=== PATIENT | male | born 1935 | race Caucasian/White ===

== ENCOUNTER → 2017-04-16 | Outpatient (CLI) | payer MEDICARE, BC ==
[~2017-04-16] MED LIST: AMLODIPINE5 M1 PO; ATIVAN0.5 MG PO; BACLOFEN 10MG T10 MG PO; Depakote250 MG PO; FLEXERIL5 MG PO; FLONASE 50 MCG16 GM; SUPHEDRINE SINU PO; TYLENOL EXTRA500 M1 PO; VIAGRA50 MG PO; ZOCOR10 MG PO
== END ==
LOC: LAB 12:35
DX: N40.1 Benign prostatic hyperplasia with lower urinary tract symptoms (principal); Z12.5 Encounter for screening for malignant neoplasm of prostate
CPT/HCPCS: G0103

== ENCOUNTER → 2017-05-02 | Outpatient (CLI) | payer MEDICARE, BC ==
--- NOTE | 2017-05-02 11:33 | RADIOLOGY REPORT PS360 ---
KNEE-3 VIEWS-RT HISTORY: ARTHRALGIA OF RT KNEE ORDERING PHYSICIAN: GODWIN DONAHUE PATIENT AGE: 81 years COMPARISON: None FINDINGS: No fracture or dislocation. No lytic or blastic change. Normal mineralization. No significant arthritic changes evident. Minimal bony hypertrophy along the posterior patella superiorly and inferiorly. The knee joint space is well-preserved Incidental vascular calcification. IMPRESSION: Minimal bony spurring along the patella otherwise negative
== END ==
LOC: RAD 11:02
DX: M25.561 Pain in right knee (principal)